=== PATIENT | female | born 1970 | race Caucasian/White ===

== ENCOUNTER 2017-12-24 08:38 | Emergency (ER) | payer SELFPAY ==
[2017-12-24 08:45] VITALS: BP 107/67; BMI 27.6
--- NOTE | 2017-12-24 09:30 | DR.GENAD ---
HPI - PCP Primary Care Physician: so - Complaint/Symptoms Chief Complaint Doctors Comments: Aarti was treated for a cellulitis of the nasal bridge on Sunday with bactrim DS was advised to come to the ED today for evaluation. Patient states that the lesion has not gotten worse or better, it the same. She has two day of antibitotics left. No cultures or labs done. Chief Complaint:: "dr aranda told me I had staph on my nose sunday and gave me po antibiotic and it hasnt got any better since sunday" - Source History Provided: Patient - Mode of Arrival Mode of Arrival: Ambulatory - Timing Onset of Chief Complaint: 12/20/17 PMH - PMH Past Medical History: Yes Past Medical History Comment: throid problems, heart mumor Past Surgical History: Yes Surgical History: Hysterectomy Past Surgical History Comment: tubal, both feet - Family History History of Family Medical Conditions: Yes Family Medical History: Diabetes Mellitus, Cancer, Heart Failure, Hypertension - Social History Does patient currently use any type of tobacco product: Yes Have you used tobacco products in the last 12 months: Yes Type of Tobacco Use: Cigarettes How many years tobacco product used: 30 Does any household member use tobacco: No Alcohol Use: None Do you use any recreational Drugs:: No Lives With: Family Lives Where: Home - infectious screening In the last 2 months have you had wt loss of >10#?: NO Have you had fever, night sweats or hemotysis?: No Have you traveled outside the country in the last 6 months?: No Isolation: Standard ROS - Review of Systems Eyes: No Symptoms Reported ENTM: No Symptoms Reported Respiratoy: No Symptoms Reported Cardiovascular: No Symptoms Reported Gastrointestinal/Abdominal: No Symptoms Reported Genitourinary: No Symptoms Reported Neurological: No Symptoms Reported Musculoskeletal: No Symptoms Reported Integumentary: Other (nasal bridge) Hematologic/Lymphatic: No Symptoms Reported Endocrine: No Symptoms Reported Psychiatric: No Symptoms Reported All Other Systems: Reviewed and Negative PE - Vital Signs Vitals: Temperature 97.1 F Pulse Rate 80 Respiratory Rate 18 Blood Pressure 107/67 O2 Sat by Pulse Oximetry 99 - General Limitations: No Limitations General Appearance: Alert, In No Apparent Distress - Head Head Exam: Normal Inspection, Atraumatic - Eyes Eye exam: Normal Appearance, PERRL, EOMI - ENT ENT Exam: Normal Exam External Ear Exam: Normal External Inspection TM/Canal Exam: Bilateral Normal Nose Exam: Normal Nose Exam Mouth Exam: Normal Inspection Throat Exam: Normal Inspection - Neck Neck Exam: Normal Inspection - Chest Chest Inspection: Normal Inspection - Respiratory Respiratory Exam: Normal Lung Sounds Bilat Respiratory Exam: Bilateral Clear to Auscultation - Cardiovascular Cardiovascular Exam: Regular Rate, Normal Rhythm - Abdominal Exam Abdominal Exam: Normal Inspection Abdominal Tenderness: negative: RUQ, RLQ, LUQ, LLQ, Epigastrium, Suprapubic, Diffuse, Mild, Moderate, Severe, Other - Extremities Extremities Exam: Normal Inspection - Back Back Exam: Normal Inspection - Neurologic Neurological Exam: Alert, Oriented X3, CN II-XII Intact - Psychiatric Psychiatric Exam: Normal Affect, Normal Mood - Skin Skin Exam: Warm, Dry, Rash (nasal tip; erythematous) - Diagnosis Discharge Problem: Cellulitis of nasal tip - Discharge Plan Condition: Stable - Follow ups/Referrals Follow ups/Referrals: ASHLEE ARANDA [Primary Care Provider] - 3 days - Instructions
== END 2017-12-24 09:41 | disposition home or self-care (01) ==
LOC: ER 09:00
DX: J34.0 Abscess, furuncle and carbuncle of nose (principal)
CPT/HCPCS: 99281; 99282